=== PATIENT | female | born 1975 | race Caucasian/White ===

== ENCOUNTER → 2016-04-28 | Outpatient (CLI) | payer BC ==
--- NOTE | 2016-04-28 18:29 | US ---
Dear Dr. Espino, Thank you for sending your patient, Germania Morris, to us for a follow-up US to assess interval growth. As you know, the patient is a 40 y.o. G2, P1001 at 35 weeks and 4 days with an EDC of 05/29/16 based on LMP and 8 week US. Her is complicated by a prior delivery for an L GA infant (9 lb 10 oz @ 42 weeks). She strongly desires a TOLAC and was sent for a growth US given he r history and because she is measuring size > dates. Genetic Screening: NIPT reassuring The patient denies any uterine contractions, vaginal bleeding, or loss of fluid. She reports excellen t movement. Today, she is without complaints. US FINDINGS: Number of fetuses: 1 Placental location: Posterior, no previa presentation: Cephalic Cervix: Suboptimal MVP: 4.0 cm Measurements: Biparietal diameter: 94 mm, 38 weeks 4 days Head circumference: 350 mm, 40 weeks 6 days Abdominal circumference: 354 mm, 39 weeks 3 days Femur length: 67 mm, 34 weeks 3 days Humerus length: 60 mm, 34 weeks 4 days Transcerebellar diameter: 46 mm, 35 weeks 2 days Cerebral Lateral Ventricle: 5 mm Cisterna Magna: 6 mm Heart Rate: 142 bpm Average ultrasound age: 38 weeks 3 days Estimated weight: 3451 g weight percentile: 98% Anatomy: anatomy was previously assessed. Today the following structures were visualized and appeared n ormal: lateral ventricles, posterior fossa, 4CH view, stomach, kidneys, and bladder. IMPRESSION: Today, the fetus measures in the 98%ile for gestational age. The patient had a negative Glucola, and there is no evidence of polyhydramnios or [id number] disproportion. Based on today's EFW of approxi mately 3500 g. I estimate that the fetus will weigh between 6086-1735 g at 39-40 weeks. The patient s trongly desires a TOLAC as this will be her last delivery and she had a difficult recovery from her l ast delivery. She also desires to go into spontaneous labor, but we discussed that I would r ecommend delivery between 39-40 weeks to optimize her chance for a vaginal delivery. We also discusse d that there will be an increased risk of arrest of labor given the macrosomia, and that jagdish an delivery following a failed TOLAC carries more morbidity than an elective repeat . We also briefly discussed the risk of shoulder dystocia with macrosomia and that she would not be a ca ndidate for an operative vaginal delivery. The patient will discuss mode of delivery and delivery elif ing with you further. Thank you again for sending this patient to see us today. Approximately 15 minutes were spent with th is patient today with 12 minutes of this time spent in direct face to face counseling regarding today 's US findings and our recommendations. Please contact me with any questions at . Neelam Mendez MD Maternal- Medicine
--- NOTE | 2016-04-29 09:51 | US ---
Follow Up Obstetric Ultrasound Indication: 40-year-old 2, para 1-0-0-1 being followed in the perinatology clinic to assess f etal growth. The estimated gestational age by previous dating is 35 weeks and 4 days yielding an EDC of May 29, 2016. Comparison: January 14, 2016. Findings: Number: 1. Presentation: Vertex. Placental location: Posterior. No previa. Cervix: Obscured. Maximum vertical pocket: 4.0 cm. heart rate: 142 bpm. Biometry: Biparietal diameter: 94 mm 38 weeks, 4 days Head circumference: 350 mm 40 weeks, 6 days Abdominal circumference: 354 mm 39 weeks, 3 days Femur length: 67 mm 34 weeks, 3 days Humerus length: 60 mm 34 weeks, 4 days Transcerebellar diameter: 46 mm 35 weeks, 2 days HC/AC: 0.99 (0.93-1.11) FL/BPD: 71% FL/AC: 19% Average ultrasound age: 38 weeks, 3 days EDC based on today's average ultrasound age: May 09, 2016. Estimated weight is 3451 grams +/- 504 grams (7 pounds 10 ounces +/- 18 ounces). The estimated weight is at the 98th percentile based on previous dating (previously 76th). Anatomy Survey: Previously assessed. Limited visualization of the supratentorial brain, accounts payable associate ior fossa, four-chamber heart, stomach, kidneys and urinary bladder are within normal limits. Impression: 1. Living parmar in vertex presentation. Size concordant with dates. The estimated gest ational age by biometry is 38 weeks and 3 days yielding an EDC of May 09, 2016. The estimat ed gestational age by previous dating is 35 weeks and 4 days. 2. Fetus resides in the 98th percentile. 3. Normal amniotic fluid volume. No previa. 4. Please refer to Dr. Mendez's perinatology consultation and recommendations.
== END ==
LOC: FIMAGING 14:07
PROVIDERS: ATTEND Obstetrics & Gynecology
DX: O09.523 Supervision of elderly multigravida, third trimester (principal); O34.219 Maternal care for unspecified type scar from previous cesarean delivery; Z3A.35 35 weeks gestation of pregnancy

== ENCOUNTER → 2018-06-28 | Outpatient (CLI) | payer BC | LOC: FIMAGING 13:33 | PROVIDERS: ATTEND Obstetrics & Gynecology | DX: Z12.31 Encounter for screening mammogram for malignant neoplasm of breast (principal) ==